=== PATIENT | female | born 1980 | race Caucasian/White ===

== ENCOUNTER → 2022-12-17 13:29 | Outpatient (CLI) | payer OTHER, SELFPAY ==
--- NOTE | ~2022-12-17 | MM_ITS ---
EXAMINATION: MM screening [facility]rek BI w bryanna HISTORY: Screening mammogram TECHNIQUE: Craniocaudal and mediolateral oblique 3-D tomosynthesis images were obtained and synthetic 2-D images were generated. CAD analysis was submitted and interpreted. COMPARISON: None, baseline BREAST PARENCHYMAL COMPOSITION: There are scattered areas of fibroglandular density. FINDINGS: No suspicious mass, calcification, or architectural distortion are identified in either trini ast to suggest malignancy. IMPRESSION: 1. No mammographic evidence of malignancy. 2. Recommend routine screening mammography in one year. BI-RADS Category 1: Negative Reviewed, dictated and finalized at location A.
== END ==
PROVIDERS: PCP Obstetrics & Gynecology; Visit Provider Obstetrics & Gynecology
DX: Z12.31 Encounter for screening mammogram for malignant neoplasm of breast (principal)
CPT/HCPCS: 77063; 77067

== ENCOUNTER 2022-12-23 16:53 | Emergency (ER) | payer OTHER, BC, SELFPAY ==
--- NOTE | ~2022-12-23 | XR_ITS ---
EXAM: XR ankle RT min 3V, XR foot RT min 3V DATE: 12/23/2022 17:27 HISTORY: fell playing vball . COMPARISON: None available. FINDINGS: Normal mineralization. Transverse, nondisplaced fractures of the proximal second through f ourth metatarsals. Ankle joint is intact. No lytic or blastic lesion. Joint spaces are maintained. No erosion or periosteal change. Soft tissues within normal limits. IMPRESSION: Transverse, nondisplaced fractures of the proximal second through fourth metatarsals. Reviewed, dictated and finalized at location K. IMPRESSION: Transverse, nondisplaced fractures of the proximal second through f ourth metatarsals.
--- NOTE | ~2022-12-23 | XR_ITS ---
EXAMINATION: XR knee RT 3V DATE: 12/23/2022 17:27 INDICATION: Fall while playing volleyball TECHNIQUE: Anteroposterior, 2 oblique and crosstable lateral views of the right knee were obtained COMPARISON: None. FINDINGS: Alignment is normal. No fracture. No joint effusion/layering lipohemarthrosis. Soft tissues are unre markable. IMPRESSION: 1. Negative right knee radiographs. Reviewed, dictated and finalized at location A.
[2022-12-23 17:03] VITALS: BP 125/87; PULSE 83; RESP 16; TEMP 36.2; O2SAT 98
--- NOTE | 2022-12-23 17:52 | ED.LOWEXIN ---
HPI - Extremity Injury (Lower) General Chief Complaint: Extremity Injury, Lower Stated Complaint: right foot injury Time Seen by Provider: 12/23/22 17:08 Source: patient Mode of arrival: wheelchair Limitations: no limitations History of Present Illness HPI Narrative: This is a 42 year old female that presents to the ER for right foot pain. Reports she was playing volleyball and stepped forward and felt a pop in her foot. Reports falling forward. She did not hit her head or lose consciousness. Reports since she has had right foot and knee pain. Denies decreased ROM or numbness. Related Data Allergies Allergy/AdvReac Type Severity Reaction Status Date / Time No Known Allergies Allergy Unknown Unverified 12/23/22 17:44 Review of Systems Review of Systems: CONSTITUTIONAL: Denies fever MUSCULOSKELETAL: Reports joint pain, and myalgia. NEUROLOGIC: Denies numbness, or weakness. All systems reviewed & are unremarkable except as noted in HPI and below PMFSH Past Medical History Medical History (Updated 12/23/22 @ 17:59 by Juliette Richardson PA-C) No active medical problems Social History Social History (Updated 12/23/22 @ 17:59 by Juliette Richardson PA-C) Smoking status: Never smoker Exam Narrative: GENERAL: Well-appearing, well-nourished, and in no acute distress. HEAD: Normocephalic, atraumatic. EYES: EOMI. EXTREMITIES: Normal range of motion. No edema or obvious deformity. Normal DP pulse. Normal sensation SKIN: Warm, dry, no rash. NEURO: No focal deficits. Alert and oriented x3. PSYCH: Normal mood and affect Course Course Emergency Course: Patient updated on work-up and agrees with plan of care Vital Signs Vital signs: Vital Signs Temperature 97.1 F L 12/23/22 17:03 Pulse Rate 83 12/23/22 17:03 Respiratory Rate 16 12/23/22 17:03 Blood Pressure 125/87 12/23/22 17:03 Pulse Oximetry 98 12/23/22 17:03 Oxygen Delivery Room Air 12/23/22 17:03 Temperature 97.1 F L 12/23/22 17:03 Pulse Rate 83 12/23/22 17:03 Respiratory Rate 16 12/23/22 17:03 Blood Pressure 125/87 12/23/22 17:03 Pulse Oximetry 98 12/23/22 17:03 Oxygen Delivery Room Air 12/23/22 17:03 Procedures Orthopedic Splinting/Casting Injury #1: Splinting/Casting Date: 12/23/22 Side: right Lower Extremity Immobilizer: posterior splint Splint: customized in ED OCL: short leg Pre-Procedure Neuro Vascular Exam: normal Post-Procedure Neuro Vascular Exam: normal Other Orthopedic Equipment: crutches MDM - Extremity Injury (Lower) MDM Narrative Medical decision making narrative: Patient presents to the emergency department for right foot injury sustained just prior to arrival. She is neurovascularly intact. Right foot x-ray shows transverse, nondisplaced fractures of the proximal second through fourth metatarsals. Patient placed in posterior splint and given crutches. Will be given follow-up with orthopedics. She was given warnings to return to the ER Differential Diagnosis Differential diagnosis: Likely fracture of toe, ankle fracture and other (foot fracture) Imaging Data Radiologist's impression: ITS Impressions Ankle X-Ray 12/23/22 17:34 IMPRESSION: Transverse, nondisplaced fractures of the proximal second through fourth metatarsals. Foot X-Ray 12/23/22 17:34 IMPRESSION: Transverse, nondisplaced fractures of the proximal second through fourth metatarsals. Knee X-Ray 12/23/22 17:36 IMPRESSION: 1. Negative right knee radiographs. Critical Care Time Critical Care Time Critical Care Time: No Discharge Plan Discharge Clinical Impression: Metatarsal fracture Qualifiers: Encounter type: initial encounter Metatarsal bone: unspecified metatarsal Fracture type: closed Fracture alignment: nondisplaced Laterality: right Qualified Code(s): S92.301A - Fracture of unspecified metatarsal bone(s), right foot, initial e
[2022-12-23] MEDS: HYDROcodone/acetaminophen (*CRX) 5-325 MG TABLET 1 TAB PO (18:28)
== END 2022-12-23 18:40 | disposition home or self-care (01) ==
PROVIDERS: Emergency Provider Physician Assistant
DX: S92.324A Nondisplaced fracture of second metatarsal bone, right foot, initial encounter for closed fracture (principal); S92.334A Nondisplaced fracture of third metatarsal bone, right foot, initial encounter for closed fracture; S92.344A Nondisplaced fracture of fourth metatarsal bone, right foot, initial encounter for closed fracture; X50.0XXA Overexertion from strenuous movement or load, initial encounter
CPT/HCPCS: 29515; 73562; 73610; 73630; 99284; A9270

== ENCOUNTER 2024-01-15 15:18 | Outpatient (CLI) | payer OTHER, BC, SELFPAY ==
--- NOTE | ~2024-01-15 | MM_ITS ---
EXAMINATION: MM screening derrek BI w bryanna HISTORY: Screening mammogram TECHNIQUE: Craniocaudal and mediolateral oblique 3-D tomosynthesis images were obtained and synthetic 2-D images were generated. CAD analysis was submitted and interpreted. COMPARISON: 12/17/2022 BREAST PARENCHYMAL COMPOSITION:Not Dense. There are scattered areas of fibroglandular density. FINDINGS: No suspicious mass, calcification, or architectural distortion are identified in either trini ast to suggest malignancy. There has been no suspicious interval change. IMPRESSION: No mammographic evidence of malignancy. Recommend routine screening mammography in one year. BI-RADS Category 1: Negative Reviewed, dictated and finalized at location .
== END 2024-01-15 15:19 | disposition home or self-care (01) ==
LOC: MICIMG 15:19
PROVIDERS: PCP Obstetrics & Gynecology; Visit Provider Obstetrics & Gynecology
DX: Z12.31 Encounter for screening mammogram for malignant neoplasm of breast (principal)
CPT/HCPCS: 77063; 77067

== ENCOUNTER 2025-01-25 12:15 | Outpatient (CLI) | payer OTHER, BC, SELFPAY ==
--- NOTE | ~2025-01-25 | MM_ITS ---
EXAMINATION: MM screening [facility] BI w bryanna HISTORY: Screening TECHNIQUE: Craniocaudal and mediolateral oblique 3-D tomosynthesis images were obtained and synthetic 2-D images were generated. CAD analysis was submitted and interpreted. COMPARISON: Comparison to multiple prior studies sequentially, with oldest reviewed study dated 12/17/2022. BREAST PARENCHYMAL COMPOSITION: Not dense: There are scattered areas of fibroglandular density. FINDINGS: The left breast is stable without evidence for malignancy. There is a new cluster of calcifications in the upper inner quadrant of the right breast, middle-posterior depth. IMPRESSION: 1. New cluster of right breast calcifications. 2. Magnification views are recommended. BI-RADS Category 0: Incomplete: Needs additional imaging evaluation. Reviewed, dictated and finalized at location B. CLERK
--- OUTSIDE RECORDS SUMMARY | 2025-01-25 12:23 | XMS_ITS | Clinical Summary ---
Author Organization [facility] Address [facility] [place] [address] Care Team Providers Care Clinical Team Manager Name Role Phone None, Provider MD Primary Care Provider Unavaila ble Allergies No known active allergies Medications Norgestimate-Et hinyl Estradiol (ORTHO TRI-CYCLEN, 28,) 0.18/0.215/0.25 MG-35 MCG tablet Take 1 tablet by mouth daily. Active methylPREDNISol one, SARIAH, 4 MG tablet Take as directed on package. 1 each 05/07/2019 Active Active Problems No known active problems Family History Medical History Relation Comments Hypertension Father Hypertension Mother Relation Status Comments Father Alive Mother Alive Social History Tobacco Use Types Packs/Day Years Used Date Smoking Tobacco: Never Smokeless Tobacco: Never Alcohol Use Standard Drinks/Week Comments Yes 0 (1 standard drink = 0.6 oz pur e alcohol) seldom AUDIT-C Answer Date Recorded Frequency of Alcohol Consumption Never 05/07/2019 Average Number of Drinks Not on file 020 Frequency of Binge Drinking Not on file 04/18 Comments No Sex and Gender Information Value Date Recorded Sex Assigned at Not on file Legal Sex Female 2:40 PM WIN[place]ITH Gender Identity Not on file Sexual Orientation Not on file Last Filed Vital Signs Vital Sign Reading Time Taken Comments Blood Pressure 105/75 08/01/2024 7:14 PM CDT Pulse 80 08/01/2024 7:14 PM CDT Temperature 37 C (98.6 F) 08/01/2024 7:14 PM CDT Respiratory Rate 16 08/01/2024 7:14 PM CDT Oxygen Saturation 99% 08/01/2024 7:14 PM CDT Inhaled Oxygen Concentration - - Weight 70.6 kg (155 lb 10.3 oz) 08/01/2024 7:14 PM CDT Height 154.9 cm (5' 1) 08/01/2024 7:14 PM CDT Body Mass Index 29.41 08/01/2024 7:14 PM CDT Plan of Treatment Health Maintenance Due Date Last Done Comments Cervical Cancer Screening Pa p Smear (Age 30 to 64) Every 3 Years 1981 Annual Physical 1984 Hepatitis C 06/11/1999 DTaP, Tdap and Td Vaccines ( 1 - Tdap) 2000 Hepatitis B Vaccines (1 of 3 - 19+ 3-dose series) 2000 HPV Vaccines (1 - 3-dose SCD M series) 2008 Cervical Cancer Screening Pa p with HPV Testing (Age 30 to 64) Every 5 Years 06/11/2011 Cervical Cancer Screening wi th HPV 06/11/2011 Mammogram Screening 2021 COVID-19 Vaccine (3 - 2024-2 6 season) 2024 04/02/2021, 05/25/2020 Influenza Adult (#1) 2024 Hepatitis A Vaccines Aged Out No long er eligible based on patient's age to complete this topic Meningococcal B Vaccine Aged Out No l onger eligible based on patient's age to complete this topic Meningococcal Vaccine Aged Out No soren tatiana eligible based on patient's age to complete this topic Pneumococcal Vaccine: Pediatrics (0 to 5 Years) and At-Risk Patients (6 to 49 Years) Aged Out No longer eligible b ased on patient's age to complete this topic RSV Immunizations Under 20 Months Aged Out No longer eligible b ased on patient's age to complete this topic Insurance [facility] [employer] Care Teams Clinical Team Manager Relationship Specialty Start Date End Date None, Provider, PCP - General 05/07/19
== END 2025-01-25 12:16 | disposition home or self-care (01) ==
LOC: CHSIMG 12:16
PROVIDERS: PCP Obstetrics & Gynecology; Visit Provider Obstetrics & Gynecology
DX: Z12.31 Encounter for screening mammogram for malignant neoplasm of breast (principal); R92.8 Other abnormal and inconclusive findings on diagnostic imaging of breast
CPT/HCPCS: 77063; 77067

== ENCOUNTER 2025-03-03 11:42 | Outpatient (CLI) | payer OTHER, BC, SELFPAY ==
--- NOTE | ~2025-03-03 | MM_ITS ---
EXAMINATION: MM diagnostic derrek RT w bryanna INDICATION: 44-year old female; BI-RADS 0, callback from screening to evaluate new cluster of right breast calcifications. COMPARISON: 01/25/2025 through 12/17/2022. TECHNIQUE: Digital breast magnification CC and ML views of RIGHT breast were obtained. FINDINGS: There are scattered areas of fibroglandular density. A group of pleomorphic microcalcifications that spans 0.5 cm seen in superior medial RIGHT breast correlates to the area of concern. Additional adjacent coarse calcifications located posterior to the calcifications described above is considered benign. IMPRESSION: Suspicious RIGHT breast group of microcalcifications in the superior medial location. Biopsy is recommended. RECOMMENDATION: Stereotactic biopsy of superior medial RIGHT breast calcifications. BI-RADS 4, SUSPICIOUS Reviewed, dictated and finalized at location A. OPERATIONS IMPRESSION: Suspicious RIGHT breast group of microcalcifications in the superio r medial location. Biopsy is recommended. RECOMMENDATION: Stereotactic biopsy of superior medial RIGHT breast calcifications. BI-RADS 4, SUSPICIOUS
--- OUTSIDE RECORDS SUMMARY | 2025-03-03 12:55 | XMS_ITS | Encounter Summary ---
Author Organization [facility] Healthcare Address [address] [place] [id number] Care Team Providers Care Bagel Maker Name Role Phone Migue Mei DO Primary Care Provider [phone] Encounter Details Date Type Department Care Team (Late st Contact Info) Description 02/23/2025 Results Follow-Up [facility] Family Medicine [address] [id number] Migue Mei DO [address] [place] [address] Thyroid Function Whiting, CBC with auto differential, Lipid panel, Additional followed-up results: 3 Social History Tobacco Use Types Packs/Day Years Used Date Smoking Tobacco: Former Cigarettes Comments:1-2 a day when in [place] stopped Alcohol Use Standard Drinks/Week Comments Yes 0 (1 standard drink = 0.6 oz pur e alcohol) PHQ-2 Answer Date Recorded PHQ-2 Total Score (If total score is 3 or more points, staff should administer the PHQ-9) 0 02/18/2025 PHQ-9 Answer Date Recorded PHQ-9 Total Score 3 02/18/2025 AUDIT-C Answer Date Recorded Q1: How often do you have a drink containing alc ohol? Monthly or less 02/18/2025 Q2: How many drinks containi ng alcohol do you have on a typical day when you are drinking? 1 or 2 02/18/2025 Q3: How often do you have si x or more drinks on one occasion? Less than monthly 02/18/2025 Comments No Sex and Gender Information Value Date Recorded Sex Assigned at Not on file Legal Sex Female 12:51 AM FENCE INSTALLER HELPER Gender Identity Not on file Sexual Orientation Not on file documented as of this encounter Miscellaneous Notes * Result Encounter Note - Brandee Sanches LPN - 02/24/2025 8:29 AM CST I spoke with patient who vu. She will slate picker OTC Prilosec. E INSTALLER HELPER * Result Encounter Note - Brandee Sanches LPN - 02/24/2025 8:27 AM CST Pt vu E INSTALLER HELPER * Result Encounter Note - Migue Mei DO - 02/23/2025 4:17 PM FENCE INSTALLER HELPER Please call the patient regarding her results. Your CBC shows no anemia or infection, your cells look normal. Your lipids are normal. Keep up the great work! Your thyroid screen is normal. Your thyroid is working well. Your CMP is normal. Your electrolytes, kidney function, liver function and glucose are normal. All of the liver numbers have returned to normal levels which is reassuring. Would recommend trying medications such as Prilosec or Protonix if she has repeat episodes of the pain. If it continues to happen we could also discuss a GI referral. E INSTALLER HELPER documented in this encounter Plan of Treatment Not on file documented as of this encounter Visit Diagnoses Not on filedocumented in this encounter Care Teams Bagel Maker Relationship Specialty Start Date End Date Migue Mei DO PCP - General Family Medicine 02/18/25 documented as of this encounter
--- OUTSIDE RECORDS SUMMARY | 2025-03-03 12:55 | XMS_ITS | Clinical Summary ---
Author Organization [address] Address [address] [address] Care Team Providers Care Building Supervisor Name Role Phone Migue Mei DO Primary Care Provider [phone] Allergies No known active allergies Medications norgestimate-eth inyl estradioL (ORTHO TRI-CYCLEN) 0.18/0.215/0.25 mg-0.035mg (28) per tablet Take 1 tablet by mouth daily Active tirzepatide 2.5 mg/0.1 mL syringe Inject 2.5 mg under the skin every 7 days Active Active Problems Problem Noted Date Diagnosed Date Uterine fibroid 02/18/2025 Overview (02/18/2025): Posterior, noted on CT 08/01/24 measuring 2.8 cm Resolved Problems Problem Noted Date Diagnosed Date Resolved Date Metatarsal fracture 02/18/2025 02/19/20 25 Encounters Date Type Department Care Team Description 02/23/2025 1:10 PM EXTENSION DIVISION DIRECTOR Lab [facility] [place] [address] Screening for thyroid disorder; Screening for deficiency anemia; Screening for lipid disorders; Elevated LFTs 02/23/2025 Results Follow-Up [facility] [address] [phone] Migue Mei DO Thyroid Function Evangeline, CBC with auto differential, Lipid panel, Additional followed-up results: 3 02/18/2025 10:00 AM EXTENSION DIVISION DIRECTOR Office Visit [facility] [address] [phone] Migue Mei DO Encounter to establish care with new provider (Primary Dx); Epigastric abdominal pain; Elevated LFTs; Screening for deficiency anemia; Screening for thyroid disorder; Screening for lipid disorders; Immunization due; Fatigue, unspecified type 02/18/2025 Telephone [facility] [address] [phone] Migue Mei DO from Last 3 Months Immunizations Immunization Administration Dates Next Due Influenza, Unspecified 12/15/2024(Deferr ed: Patient decision),12/16/2023(Deferred: Patient decision) Tdap 02/18/2025 Surgical History Surgery Date Site/Laterality Comments APPENDECTOMY Medical History Medical History Date Comments Metatarsal fracture 02/18/2025 Varicella Family History Medical History Relation Name Comments No Known Problems Brother Alcohol abuse Father Cancer Father Heart disease Father No Known Problems Maternal Grandfather Hypertension Maternal Grandmother Osteoporosis Maternal Grandmother Hypertension Mother Osteoporosis Mother No Known Problems Paternal Grandfather No Known Problems Paternal Grandmother Osteoporosis Sister Relation Name Status Comments Brother Alive Father Maternal Grandfather Maternal Grandmother Alive Mother Alive Paternal Grandfather Paternal Grandmother Sister Alive Social History Tobacco Use Types Packs/Day [...] on file Legal Sex Female 12:51 AM EXTENSION DIVISION DIRECTOR Gender Identity Not on file Sexual Orientation Not on file Last Filed Vital Signs Vital Sign Reading Time Taken Comments Blood Pressure 120/70 02/18/2025 10:08 AM EXTENSION DIVISION DIRECTOR Pulse 78 02/18/2025 10:08 AM EXTENSION DIVISION DIRECTOR Temperature 36.7 C (98 F) 02/18/2025 10:08 AM EXTENSION DIVISION DIRECTOR Respiratory Rate 16 02/18/2025 10:08 AM EXTENSION DIVISION DIRECTOR Oxygen Saturation 98% 02/18/2025 10:08 AM EXTENSION DIVISION DIRECTOR Inhaled Oxygen Concentration - - Weight 77.6 kg (171 lb) 02/18/2025 10:08 AM EXTENSION DIVISION DIRECTOR Height 160 cm (5' 3) 02/18/2025 10:08 AM EXTENSION DIVISION DIRECTOR Body Mass Index 30.29 02/18/2025 10:08 AM EXTENSION DIVISION DIRECTOR Plan of Treatment Health Maintenance Due Date Last Done Comments Breast Cancer Screening-Mammogram 1981 Cervical Cancer Screening 1981 Hepatitis C Screening 1981 Hepatitis B Screening 06/11/1999 Regular Well Visit/Exam 18-64 06/11/1999 HPV Vaccines (1 - 3-dose SCD M series) 2008 Covid-19 Vaccine (3 - 2024-2 6 season) 2024 04/02/2021, 05/25/2020 Influenza Vaccine (#1) 2024 Depression Screening 02/18/2026 02/18/2025, 02/18/2025 DTaP/Tdap/Td Vaccine (2 - Td or Tdap) 02/18/2035 02/18/2025 Pneumococcal vaccine <65 Aged Out No longer eligible based on patient's age to complete this topic Procedures Procedure Name Priority Date/Time Associated Diagnosis Comments EGFR Routine 02/23/2025 1:24 PM EXTENSION DIVISION DIRECTOR Elevated LFTs DIFFERENTIAL AUTO Routine 02/23/2025 1:2 4 PM EXTENSION DIVISION DIRECTOR Screening for deficiency anemia COMPREHENSIVE METABOLIC PANEL Routine 02/23/2025 1:24 PM EXTENSION DIVISION DIRECTOR Elevated LFTs LIPID PANEL Routine 02/23/2025 1:24 PM EXTENSION DIVISION DIRECTOR Screening for lipid disorders CBC WITH AUTO DIFFERENTIAL Routine 02/23/2025 1:24 PM EXTENSION DIVISION DIRECTOR Screening for deficiency anemia THYROID FUNCTION CASCADE Routine 02/23/2025 1:24 PM EXTENSION DIVISION DIRECTOR Screening for thyroid disorder from Last 3 Months Results * eGFR (02/23/2025 1:24 PM EXTENSION DIVISION DIRECTOR) eGFR >90 >=60 mL/min/1. 73 m2 Comment: Interpretive Data Reference Interval Normal >/= 90 mL/min/1.73m2 Mildly decreased* 60 - 89 mL/min/1.73m2 Mildly to moderately decreased 45 - 59 mL/min/1.73m2 Moderately to severely decreased 30 - 44 mL/min/1.73m2 Severely decreased 15 - 29 mL/min/1.73m2 Kidney Failure < 15 mL/min/1.73m2 *Relative to young adult level Estimated glomerular filtration rate is determined by the 2020 CKD-EPI equation recommended by the National Kidney Foundation (A Unifying Approach to GFR Estimation: Recommendations of the NKF-ASK Task Force on Reassessing the Inclusion of Race in Diagnosing Kidney Disease, JASN 2020). The CKD-EPI equation should not be used for patients with unstable renal function and has not been validated in children and those over 70. Current interpretive data was last reviewed 2021. Testing performed by: [facility], [address] [place] [address]., [address] Blood 02/23/2025 1:24 PM EXTENSION DIVISION DIRECTOR 02/23/2025 2:15 PM EXTENSION DIVISION DIRECTOR us Migue Mei DO LAB BLOOD ORDERABLES Final Re sult [facility] [address] [facility] Department [place] [address] * Differential, auto (02/23/2025 1:24 PM EXTENSION DIVISION DIRECTOR) Neutrophil abs 4.91 1.50 - 6.50 K/cumm Comment:Testing performed by : [facility], [address] [place] [address]., [address] Imm gran abs 0.02 0.00 - 0.10 K/cumm CERNER Comment:Testing performed by : [address] [address] Lymphocyte abs 2.30 0.80 - 3.30 K/cumm JES Comment:Testing performed by : [address] [address] Monocyte abs 0.75 0.20 - 0.80 K/cumm JES Comment:Testing performed by : [address] [address] Eosinophil abs 0.13 0.00 - 0.50 K/cumm [facility] Comment:Testing performed by : [address] [address] Basophil abs 0.03 0.00 - 0.10 K/cumm [facility] Comment:Testing performed by : [address] [address] Neutrophil pct 60.3 % [facility] Comment: Interpretive Data Percent cell count reference ranges are not reported, since discordance with absolute values may lead to misinterpretation of CBC data. Current Interpretive Data was last revised on 2017. Testing performed by: [address] [address] Imm gran pct 0.2 % [facility] Comment: Interpretive Data Percent cell count reference ranges are not reported, since discordance with absolute values may lead to misinterpretation of CBC data. Current Interpretive Data was last revised on 2017. Testing performed by: [address] [address] Lymphocyte pct 28.3 % [facility] Comment: Interpretive Data Percent cell count reference ranges are not reported, since discordance with absolute values may lead to misinterpretation of CBC data. Current Interpretive Data was last revised on 2017. Testing performed by: [address] [address] Monocyte pct 9.2 % [facility] Comment: Interpretive Data Percent cell count reference ranges are not reported, since discordance with absolute values may lead to misinterpretation of CBC data. Current Interpretive Data was last revised on 2017. Testing performed by: [address] [address] Eosinophil pct 1.6 % [facility] Comment: Interpretive Data Percent cell count reference ranges are not reported, since discordance with absolute values may lead to misinterpretation of CBC data. Current Interpretive Data was last revised on 2017. Testing performed by: [facility], [address] [place] [address]., [address] Basophil pct 0.4 % JES Comment: Interpretive Data Percent cell count reference ranges are not reported, since discordance with absolute values may lead to misinterpretation of CBC data. Current Interpretive Data was last revised on 2017. Testing performed by: [address] [address] Blood 02/23/2025 1:24 PM EXTENSION DIVISION DIRECTOR 02/23/2025 2:15 PM EXTENSION DIVISION DIRECTOR Migue [employer] DO LAB BLOOD ORDERABLES Final Re sult Performing Organization Address [facility] Co de Phone Number [address] [place] [address] * Thyroid Function Evangeline (02/23/2025 1:24 PM EXTENSION DIVISION DIRECTOR) Pathologist [facility] TSH 1.43 0.30 - 4.20 mcIUnit/mL Comment:Testing performed by : [address] [address] Blood 02/23/2025 1:24 PM EXTENSION DIVISION DIRECTOR 02/23/2025 2:15 PM EXTENSION DIVISION DIRECTOR lmbang DO LAB BLOOD ORDERABLES Final Re sult Performing Organization Address [facility] Co de Phone Number [address] [address] * CBC with auto differential (02/23/2025 1:24 PM EXTENSION DIVISION DIRECTOR) WBC 8.14 3.80 - 9.90 K/cumm Comment:Testing performed by : [address] [address] Hgb 13.4 11.9 - 15.5 g/dL JES Comment:Testing performed by : [address], [address] Hct 41.2 35.6 - 45.5 % JES Comment:Testing performed by : [address] [address] Plt 279 150 - 400 K/cumm JES Comment:Testing performed by : [address] [address] MPV 12.0 9.1 - 12.3 fL JES Comment:Testing performed by : [address], [address] RBC 4.74 3.90 - 5.20 M/cumm JES Comment:Testing performed by : [address] [address] MCV 86.9 81.3 - 96.4 fL JES Comment:Testing performed by : [address] [address] MCH 28.3 27.1 - 33.3 pg JES Comment:Testing performed by : [address] [address] MCHC 32.5 32.3 - 35.7 g/dL JES Comment:Testing performed by : [address], [address] RDW CV 12.5 11.1 - 14.9 % JES Comment:Testing performed by : [address] [address] RDW SD 39.8 35.7 - 48.1 fL JES Comment:Testing performed by : [address] [address] NRBC abs 0.00 0.00 - 0.01 K/cumm JES Comment:Testing performed by : [address] [address] Blood 02/23/2025 1:24 PM EXTENSION DIVISION DIRECTOR 02/23/2025 2:15 PM EXTENSION DIVISION DIRECTOR us Migue Mei DO LAB BLOOD ORDERABLES Final Re sult [facility]ES [address] [facility] Department [place] [address] * Lipid panel (02/23/2025 1:24 PM EXTENSION DIVISION DIRECTOR) Cholesterol 157 30 - 199 mg/dL Comment: Interpretive Data Ages < or = 19 years Acceptable: <170 mg/dL Borderline high: 170-199 mg/dL High: >or= 200 mg/dL Ages > or = 20 years Desirable: <200 mg/dL Borderline high: 200-239 mg/dL High: >or= 240 mg/dL Literature References: 1. Expert Panel on Integrated Guidelines for Cardiovascular Health and Risk Reduction in Children and Adolescents. Pediatrics 2011;128:S213 2. NCEP Expert Panel. Circulation 2004;110:227 Current Interpretive Data was last revised on 2017. Testing performed by: [address] [address] Triglycerides 96 <=149 mg/dL JES Comment: Interpretive Data Ages < or = 9 years Acceptable: <75 mg/dL Borderline high: 75-99 mg/dL High: >or= 100 mg/dL Ages 10 to 20 years Acceptable: <90 mg/dL Borderline high: 90-129 mg/dL High: >or= 130 mg/dL Ages > or = 20 years Desirable: <150 mg/dL Borderline high: 150-199 mg/dL High: 200-499 mg/dL Very high: >or= 499 mg/dL Literature References: 1. Expert Panel on Integrated Guidelines for Cardiovascular Health and Risk Reduction in Children and Adolescents. Pediatrics 2011;128:S213 2. NCEP Expert Panel. Circulation 2004;110:227 Current Interpretive Data was last revised on 2017. Testing performed by: [address] [address] HDL 55 >=40 mg/dL JES Comment: Interpretive Data Ages < or = 19 years Acceptable: >45 mg/dL Borderline low: 40-45 mg/dL Low: <40 mg/dL Ages > or = 20 years Desirable: >or= 60 mg/dL Low: <40 mg/dL Literature References: 1. Expert Panel on Integrated Guidelines for Cardiovascular Health and Risk Reduction in Children and Adolescents. Pediatrics 2011;128:S213 2. NCEP Expert Panel. Circulation 2004;110:227 Current Interpretive Data was last revised on 2017. Testing performed by: [address] [address] LDL, calculated 84 <=129 mg/dL JES Comment: Interpretive Data Ages < or = 19 years Acceptable: <110 mg/dL Borderline high: 110-129 mg/dL High: >or= 130 mg/dL Ages > or = 20 years Optimal: <100 mg/dL Near optimal: 100-129 mg/dL Borderline high: 130-159 mg/dL High: >160 mg/dL Calculated using the Bob LDL-C estimating equation. This equation was implemented on 2023. Prior to this date LDL-C was estimated using the Friedewald equation. Literature References: 1. Expert Panel on Integrated Guidelines for Cardiovascular Health and Risk Reduction in Children and Adolescents. Pediatrics 2011;128:S213 2. NCEP Expert Panel. Circulation 2004;110:227 3. Bob Moreira al. CAYETANO Cardiol. 2019July 15;5(5):540-548. doi: 10.1001/[email or web address] Current Interpretive Data was last revised on 2023. Testing performed by: [address] [address] Non-HDL Cholesterol 102 mg/dL JES Comment: Interpretive Data Ages < or = 19 years Acceptable: <120 mg/dL Borderline high: 120-144 mg/dL High: >145 mg/dL Ages > or = 20 years When triglycerides are >200 mg/dL, Non-HDL cholesterol is a secondary target of therapy with treatment goals that are 30 mg/dL greater than the LDL cholesterol target. Literature References: 1. Expert Panel on Integrated Guidelines for Cardiovascular Health and Risk Reduction in Children and Adolescents. Pediatrics 2011;128:S213 2. NCEP Expert Panel. Circulation 2004;110:227 Current Interpretive Data was last revised on 2017. Testing performed by: [address] [address] Chol/HDL ratio 3 JES Comment:Testing performed by : [address] [place]., [address] Blood 02/23/2025 1:24 PM EXTENSION DIVISION DIRECTOR 02/23/2025 2:15 PM EXTENSION DIVISION DIRECTOR Migue Mei DO LAB BLOOD ORDERABLES Final Re sult [facility]ES [address] [facility] Department [place] [address] * Comprehensive metabolic panel (02/23/2025 1:24 PM EXTENSION DIVISION DIRECTOR) Pathologist [facility] Sodium 139 135 - 145 mmol/L Comment:Testing performed by : [address] [address] Potassium, pl 3.9 3.3 - 4.9 mmol/L JES Comment:Testing performed by : [address] [address] Chloride 101 97 - 110 mmol/L JES Comment:Testing performed by : [address] [address] CO2 26 22 - 32 mmol/L JES Comment:Testing performed by : [address] [address] Anion gap 12 2 - 15 mmol/L JES Comment:Testing performed by : [address] [address] BUN 13 6 - 25 mg/dL JES Comment:Testing performed by : [address] [address] Creatinine 0.70 0.60 - 1.10 mg/dL JES Comment:Testing performed by : [address] [address] Glucose 101 70 - 199 mg/dL JES Comment: Interpretive Data Fasting glucose >/= 126 mg/dl is diagnostic for diabetes. Fasting is defined as no caloric intake for at least 8 hours. Fasting glucose between 100 mg/dl to 125 mg/dl is diagnostic of prediabetes. In a patient with classic symptoms of hyperglycemia or hyperglycemic crisis, a random glucose >/= 200 mg/dl is diagnostic for diabetes. In the absence of unequivocal hyperglycemia, results should be confirmed by repeat testing. The classification and Diagnosis of Diabetes Diabetes Care 202; 46: S19-S40. Current interpretive data was last revised 2022. Testing performed by: [address] [address] Calcium 9.4 8.5 - 10.3 mg/dL JES Comment:Testing performed by : [address] [address] Bilirubin, total 0.3 0.1 - 1.2 mg/dL JES Comment:Testing performed by : [address] [address] Protein, pl 7.3 6.5 - 8.5 g/dL JES Comment:Testing performed by : [address] [address] Albumin 4.3 3.5 - 5.0 g/dL EJS Comment:Testing performed by : [address] [address] Alk phos 75 40 - 130 Units/L JES Comment:Testing performed by : [address] [address] ALT 21 7 - 45 Units/L JES Comment:Testing performed by : [address] [address] AST 18 10 - 45 Units/L JES Comment:Testing performed by : [address] [address] Blood 02/23/2025 1:24 PM EXTENSION DIVISION DIRECTOR 02/23/2025 2:15 PM EXTENSION DIVISION DIRECTOR Migue Mei DO LAB BLOOD ORDERABLES Final Re sult JES JESSICA [address] [facility] Department [place] [address] from Last 3 Months Insurance [employer] [facility] Care Teams Building Supervisor Relationship Specialty Start Date End Date Migue eMi DO PCP - General Family Medicine 02/18/25
== END 2025-03-03 11:43 | disposition home or self-care (01) ==
PROVIDERS: PCP Obstetrics & Gynecology; Visit Provider Obstetrics & Gynecology
DX: R92.8 Other abnormal and inconclusive findings on diagnostic imaging of breast (principal)
CPT/HCPCS: 77061; 77065; G0279